=== PATIENT | female | born 1985 | race Caucasian/White ===

== ENCOUNTER 2016-12-12 12:19 | Emergency (ER) | payer OTHER ==
[~2016-12-12 12:19] MED LIST: ALEVE PO; CIPRO PO; EXCEDRIN MIGRA1 EACH PO; IBUPROFEN400 MG PO; PERCOCET 10/3251 TAB PO; PERCOCET10 PO; PREDNISONE PO
[2016-12-12 14:39] LABS: AMPHETAMINE NEG (NEG); BARBITURATES NEG (NEG); BENZODIAZEPINES NEG (NEG); COCAINE NEG (NEG); MARIJUANA POS (NEG); OPIATES POS (NEG); TRICYCLIC ANTIDEPRESSANTS POS (NEG); U METHADONE NEG (NEG)
[2016-12-12 15:56] LABS: URINE SOURCE CLEAN CATCH
[2016-12-12 15:59] LABS: URINE APPEARANCE CLOUDY; URINE BLOOD 3+ (NEG); URINE COLOR YELLOW; URINE GLUCOSE NEG (NORM); URINE KETONE 1+ (NEG); URINE LEUKOCYTE ESTERASE NEG (NEG); URINE NITRATE NEG (NEG); URINE PROTEIN 1+ (NEG); URINE SPECIFIC GRAVITY >=1.030 (1.003-1.035); URINE UROBILINOGEN 0.2 MG/DL (NORM)
[2016-12-12 16:05] LABS: MICRO INDICATED? YES; URINE BILIRUBIN NEG (NEG)
[2016-12-12 16:08] LABS: CULTURE INDICATED? NO; URINE BACTERIA NEG (NEG); URINE RBC 25-50 /[HPF] (0-2); URINE WBC 0-2 /[HPF] (0-5)
== END 2016-12-12 16:46 | disposition home or self-care (01) ==
LOC: SED 12:19
PROVIDERS: Emergency Medicine
DX: F11.10 Opioid abuse, uncomplicated (principal); F15.10 Other stimulant abuse, uncomplicated; B19.20 Unspecified viral hepatitis C without hepatic coma; F17.210 Nicotine dependence, cigarettes, uncomplicated
CPT/HCPCS: 80307; 81003; 84703; 99285; J2405; J3411; J3475

== ENCOUNTER 2016-12-23 13:00 | Inpatient (IN) | payer OTHER ==
[~2016-12-23] VITALS: Ht 175.3 cm; Wt 72.6 kg
--- NOTE | ~2016-12-23 | PN ---
Unit #: [id number] #: [id number] Patient: SHILPA CUEVAS [id number] [facility] [address] [place] [address] [id number] I MR#: [id number] NAME: SHILPA CUEVAS ROOM: P174 Age: 31 Sex: F Admission Date: 12/23/2016 : 1985 Attending Physician: Andrea Zapien M.D. Admitting Physician: Andrea Zapien M.D. Primary Care Physician: Primary Care Physician Norma SANCHEZ PROGRESS NOTES DATE 12/25/2016 DISCUSSION The patient continues to complain of muscle aches and anxiety. She reports uncertainly as to what her post-discharge planning will be stating that she needs to communicate with her boyfriend who is also a patient at this facility regarding this. I have instructed the patient to expect early week discharge. Dictated by... Andrea Zapien M.D. CB/bzayla TD: 12/25/2016 14:06 JOB #: [id number] DANIEL PROGRESS NOTES Page 1 of 1 X Andrea Zapien MD PROGRESS NOTE
--- NOTE | ~2016-12-23 | HP ---
Unit #: [id number] #: [id number] Patient: BROOKLYNN CUEVAS [id number] [place] [address] [id number] I MR#: [id number] NAME: BROOKLYNN CUEVAS. ROOM: P174 Age: 31 Sex: F Admission Date: 12/23/2016 : 1985 Attending Physician: Andrea Zapien M.D. Admitting Physician: Andrea Zapien M.D. Primary Care Physician: Primary Care Physician No HISTORY AND PHYSICAL HISTORY OF PRESENT ILLNESS Brooklynn is a 31 year old admitted to [facility] because of her continued poly-illicit substance abuse. She has had other admissions to this facility for the same. PAST MEDICAL HISTORY Long history of opioid abuse to include IV heroin. PAST SURGICAL HISTORY Nothing reported. ALLERGIES No known drug allergies. SOCIAL HISTORY Smokes 1 pack per day. Drinks alcohol rarely. Admits to a long history of opioid abuse to include IV heroin. FAMILY HISTORY Medically noncontributory. REVIEW OF SYSTEMS CONSTITUTIONAL: No fever or chills. HEENT: Denies any sore throat, ear pain or runny nose. CARDIOVASCULAR: Denies chest pain, irregular heart rhythm or palpitations. CHEST: Denies shortness of breath or cough. No hemoptysis. GASTROINTESTINAL: Denies nausea, vomiting, diarrhea or chronic constipation. ENDOCRINE: Denies history of increased thirst or urination. No recent significant weight loss or gain. GENITOURINARY: Denies dysuria, frequency, or hematuria. SKIN: Denies any rashes. HEMATOLOGIC: Denies history of increased bleeding or bruising. MUSCULOSKELETAL: Denies any hot, swollen joints. No generalized muscle pain. NEUROLOGIC: Denies problems with vision or speech. No frequent, severe headaches. No numbness, tingling or weakness in any extremities. Denies loss of bladder or bowel control. CURRENT MEDICATIONS 1. Detox protocol. 2. Motrin 400 mg q. 6 hours p.r.n. 3. Cleocin 300 mg t.i.d. Unit #: [id number] #: [id number] Patient: BROOKLYNN CUEVAS PHYSICAL EXAMINATION GENERAL: Alert, well-nourished, in no apparent distress. VITAL SIGNS: Blood pressure 114/64, heart rate 80, respirations 16, temperature 98.6. WEIGHT: 160. HEIGHT: 5 feet 9 inches. SKIN: Warm and dry without rash. She has significant track briones with multiple small red raised areas on her hands and forearms. She has one much larger very tender red, warm, swollen area along the right upper arm. HEENT: Normocephalic. TMs not viewed. Oral and nasal passages clear. Conjunctivae clear. PERRLA. EOMs intact. NECK: Supple without lymphadenopathy or thyromegaly. HEART: Regular rate and rhythm without murmur. LUNGS: Clear. ABDOMEN: Soft, nontender. : Not done. EXTREMITIES: No evidence of cyanosis, clubbing or edema. Moves all without focal deficit. NEUROLOGICAL: Grossly within normal limits. Cranial Nerves: II: Visual saenz are intact. III, IV AND : Extraocular movements are intact. Pupils are equal, round and reactive to light. V: Facial sensation is grossly normal. VII: Facial movements and expression are normal. VIII: Auditory acuity grossly intact. IX, X: Uvula is midline. Phonation is normal. XI: Patient shrugs shoulders and turns head normally. XII: Tongue protrudes in the midline. Sensory and Motor Function: Sensory and motor sensation is grossly normal. Motor: moves all extremities well. Coordination: Gait is normal. Deep Tendon Reflexes: Intact. IMPRESSION 1. Psychiatric admission. 2. History of IV drug use. 3. Multiple abscesses that are related to her IV drug use. RECOMMENDATIONS PSYCHIATRIC: Per psychiatrist. MEDICAL: 1. See no contraindication to participate in facility's activities. 2. Complete 7 days of Cleocin 300 mg p.o. t.i.d. Warm compresses to the abscesses. These may need I and D during this admission. Will follow. MEDICAL PROGNOSIS Good. MEDICAL CONDITION Stable. Dictated by... Phyllis Chow P.A.-C. for Swetha Key/jeff Unit #: [id number] #: [id number] Patient: BROOKLYNN CUEVAS TD: 12/24/2016 17:34 JOB #: [id number] HISTORY AND PHYSICAL Page 1 of 1 X Phyllis Chow X HISTORY AND PHYSICAL
--- NOTE | ~2016-12-23 | CR20 ---
[facility] A Service of [facility] & [facility] RADIOLOGY TEXT RESULTS PATIENT: SHILPA CUEVAS LOCATION: [facility] P174-2 : [birth year] UNIT #: [id number] AGE: [address]: Andrea Zapien MD SEX: F ORDER DR: [id number] [facility] [address]. [place], [place] [address] [id number] I MR#: [id number] Acc #: [id number] NAME: SHILPA CUEVAS : 1985 SEX: F STUDY DATE/TIME: 12/23/2016 19:51 UNIT: [facility] ROOM: [facility] STUDY DESCRIPTION: CR Ankle Min 3 Views Lt Attending Physician: Andrea Zapien M.D. Ordering Physician: Andrea Zapien M.D. Primary Care Physician: Primary Care Physician No MEDICAL IMAGING REPORT This report is preliminary unless electronic signature is present EXAM Left ankle, 12/23/2016 INDICATIONS Fell tonight in the Admissions Office; pain across the lateral malleolus. TECHNIQUE Three views of the left ankle. No comparisons. FINDINGS The examination is negative. No acute fracture. Tiny calcaneal spur. Minimal soft tissue swelling. IMPRESSION 1. Minimal soft tissue swelling, otherwise negative. Dictated by... Jace Man M.D. THIS IS AN ELECTRONICALLY VERIFIED REPORT Jace Man M.D. at 12/24/2016 11:28 AM ABHIJEET/melina TD: 12/24/2016 02:49 JOB #: [id number] MEDICAL IMAGING REPORT Page 1 of 1 COPY
--- NOTE | ~2016-12-23 | DS ---
Unit #: [id number] #: [id number] Patient: SHILPA CUEVAS [id number] [place] [address] [id number] I MR#: [id number] NAME: SHILPA CUEVAS. ROOM: [facility] Age: 31 Sex: F Admission Date: 12/23/2016 : 1985 Discharge Date: 12/27/2016 Attending Physician: Andrea Zapien M.D. Primary Care Physician: Primary Care Physician No DISCHARGE SUMMARY REASON FOR ADMISSION The patient is a 31-year-old white female, admitted to the [address] [place] [address] unit for opioid detox. HOSPITAL COURSE The patient was admitted to the [facility] unit and placed on routine detoxification protocol for opioids. Her stay in the hospital was a brief and uneventful one. She participated less than optimally within the therapeutic milieu, but her detox was a smooth one. She was begun on Cleocin for an injection site abscess. By 12/27/2016, the patient was in bright spirits and requested discharge and it was so ordered. FINAL DIAGNOSES Opioid use disorder, dysthymic disorder, alcohol use disorder, injection site abscess. DISPOSITION ON DISCHARGE The patient is discharged on the following medications; Cleocin 150 mg 2 tablets t.i.d. x6 remaining days for injection site abscess. DISCHARGE INSTRUCTIONS No dietary or physical restrictions were placed on the patient at the time of discharge. FOLLOWUP She will follow up through the auspices of community mental health resources. PROGNOSIS Her prognosis is fair. Dictated by... Andrea Zapien M.D. CB/herbert TD: 12/29/2016 07:55 JOB #: [id number] Unit #: [id number] #: [id number] Patient: SHILPA CUEVAS DISCHARGE SUMMARY Page 1 of 1 X Andrea Zapien MD X DISCHARGE SUMMARY
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
--- NOTE | ~2016-12-23 | PN ---
Unit #: [id number] #: [id number] Patient: SHILPA CUEVAS [id number] [facility] [address] [place] [address] [id number] I MR#: [id number] NAME: SHILPA CUEVAS ROOM: P174 Age: 31 Sex: F Admission Date: 12/23/2016 : 1985 Attending Physician: Andrea Zapien M.D. Admitting Physician: Andrea Zapien M.D. Primary Care Physician: Primary Care Physician Norma SANCHEZ PROGRESS NOTES DATE 12/24/2016 DISCUSSION The patient is abed and is gently but firmly confronted today regarding her failure to attend an on unit therapeutic activity. The patient reports that she and her boyfriend have yet to make arrangements for post discharge disposition. I have redirected the patient's expectations of inpatient care and have told her to expect a.m. discharge. Dictated by... Andrea Zapien M.D. CB/trinity TD: 12/26/2016 22:43 JOB #: [id number] DANIEL PROGRESS NOTES Page 1 of 1 X Andrea Zapien MD PROGRESS NOTE
--- NOTE | ~2016-12-23 | CO ---
Unit #: [id number] #: [id number] Patient: BROOKLYNN CUEVAS [id number] [place] [address] [id number] I MR#: [id number] NAME: BROOKLYNN CUEVAS ROOM: P174 Age: 31 Sex: F Admission Date: 12/23/2016 : 1985 Attending Physician: Andrea Zapien M.D. Consultation Date: 12/24/2016 CONSULTATION REPORT Brooklynn is a 31-year-old with a long history of IV drug use. She had multiple abscesses at time of admission. These areas were described and noted on her admission H and P. Please see H and P dated 12/24/2016. Dictated by... Phyllis Chow P.A.-C. for Swetha Key/herbert TD: 12/24/2016 17:52 JOB #: [id number] CONSULTATION REPORT Page 1 of 1 X Phyllis Chow CONSULTATION REPORT
== END 2016-12-27 14:20 | DRG 897 ==
LOC: P1E 17:41
PROC: HZ2ZZZZ Detoxification Services for Substance Abuse Treatment (ICD-10-PCS; principal; 2016-12-23)
DX: F11.10 Opioid abuse, uncomplicated (principal); R45.851 Suicidal ideations; F34.1 Dysthymic disorder; F10.10 Alcohol abuse, uncomplicated; Z59.0 Homelessness; F17.210 Nicotine dependence, cigarettes, uncomplicated
CPT/HCPCS: 73610